=== PATIENT | female | born 1970 | race African-American/Black ===

== ENCOUNTER 2019-01-03 23:03 | Emergency (ER) | payer OTHER ==
[~2019-01-03] VITALS: Ht 167.6 cm; Wt 72.6 kg
[2019-01-03 23:37] LABS: Basophils # (auto) 0.1 uL; Basophils % (auto) 1.2 % (0.0-2.0); Eosinophils # (auto) 0.1 uL; Eosinophils % (auto) 1.8 % (0.0-7.0); Hematocrit 39.3 % (36.0-46.0); Hemoglobin 13.3 g/dL (12.2-16.2); Lymphocytes # (auto) 1.1 uL; Lymphocytes % (auto) 21.3 % (10.0-50.0); Mean Corpuscular Hemoglobin 32.9 pg (28.0-32.0); Mean Corpuscular Hgb Conc. 33.8 g/dL (32.0-36.0); Mean Corpuscular Volume 97.3 fL (80.0-100.0); Monocytes # (auto) 0.6 uL; Monocytes % (auto) 10.5 % (0.0-12.0); Neutrophils # (auto) 3.5 uL; Neutrophils % (auto) 65.2 % (37.0-80.0); Nucleated Red Blood Cells % 0.1 %; Platelet Count (auto) 202 10^3/uL (140-450); Red Blood Cells 4.04 10^6/uL (4.0-5.20); Red Cell Distribution Width 13.4 % (11.8-14.3); White Blood Cell 5.4 10^3/uL (4.4-10.8)
[2019-01-03 23:55] LABS: Alanine Aminotransferase 20 U/L (13-56); Albumin 3.3 g/dL (3.4-5.0); Anion Gap 7 (5-15); Aspartate Aminotransferase 15 U/L (15-37); BUN/Creatinine Ratio 10.8; Blood Urea Nitrogen 11 mg/dL (7-18); Calcium 8.2 mg/dL (8.5-10.1); Carbon Dioxide 25 mmol/L (21-32); Chloride 107 mmol/L (98-107); GFR African American 74 mL/min; GFR Non-African American 61 mL/min; Glucose 108 mg/dL (74-106); Magnesium 2.2 mg/dL (1.6-2.6); Potassium 3.4 mmol/L (3.5-5.1); Sodium 139 mmol/L (136-145)
[2019-01-04] LABS: Alkaline Phosphatase 96 U/L (45-117); Total Protein 7.5 g/dL (6.4-8.2)
[2019-01-04 00:45] LABS: Urine Bacteria FEW /hpf (None Seen); Urine Blood 2+ /uL (Negative); Urine Mucus FEW (None Seen); Urine Specific Gravity 1.022 (1.001-1.035); Urine WBC 1 /hpf (0 - 5)
[2019-01-04 04:13] LABS: CRP High Sensitivity 0.27 mg/dL (< 0.3)
[2019-01-04 05:34] VITALS: BP 124/55
[2019-01-04] MEDS ORDERED: cefTRIAXone SOD 1,000 MG VL IM ONE (05:45)
[2019-01-04] MEDS ORDERED: ASPirin 81 mg TAB PO ONE (05:45)
== END 2019-01-04 05:59 | disposition home or self-care (01) ==
LOC: ER 23:04
DX: J32.9 Chronic sinusitis, unspecified (principal); Z88.6 Allergy status to analgesic agent
CPT/HCPCS: 36415; 70450; 71045; 80053; 81001; 83615; 83735; 84484; 85025; 86141; 93005; 94761; 96372; 99284; J0696

== ENCOUNTER 2019-02-10 21:48 | Emergency (ER) | payer OTHER ==
[~2019-02-10] VITALS: Ht 170.2 cm; Wt 73.9 kg
[2019-02-10 22:42] LABS: Albumin 3.4 g/dL (3.4-5.0); Calcium 8.4 mg/dL (8.5-10.1); Potassium 3.6 mmol/L (3.5-5.1)
[2019-02-10 22:46] LABS: Urine Bacteria FEW /hpf (None Seen); Urine Blood 2+ /uL (Negative); Urine Specific Gravity 1.008 (1.001-1.035); Urine WBC 368 /hpf (0 - 5); Urine WBC Clumps PRESENT /hpf (None Seen)
[2019-02-10 22:46] LABS: BUN/Creatinine Ratio 11.8; Basophils # (auto) 0 uL; Basophils % (auto) 0.5 % (0.0-2.0); Bilirubin, Total 3.4 mg/dL (0.2-1.0); Eosinophils # (auto) 0 uL; Eosinophils % (auto) 0.1 % (0.0-7.0); Hematocrit 37.8 % (36.0-46.0); Lymphocytes # (auto) 0.3 uL; Lymphocytes % (auto) 4.2 % (10.0-50.0); Mean Corpuscular Hemoglobin 33.7 pg (28.0-32.0); Mean Corpuscular Hgb Conc. 34.4 g/dL (32.0-36.0); Mean Corpuscular Volume 97.9 fL (80.0-100.0); Monocytes # (auto) 0.4 uL; Monocytes % (auto) 4.8 % (0.0-12.0); Neutrophils # (auto) 7.5 uL; Neutrophils % (auto) 90.4 % (37.0-80.0); Platelet Count (auto) 140 10^3/uL (140-450); Red Blood Cells 3.86 10^6/uL (4.0-5.20); Red Cell Distribution Width 13.8 % (11.8-14.3); Total Protein 7.1 g/dL (6.4-8.2); White Blood Cell 8.3 10^3/uL (4.4-10.8)
[2019-02-11 04:05] VITALS: BP 115/57
[2019-02-11] MEDS ORDERED: cefTRIAXone 1GM/50ML D5W 50 ML IV ONE (04:30)
[2019-02-11] MEDS ORDERED: SODIUM CHLORIDE 0.9% 1,000 ML IV ONE (04:30)
== END 2019-02-11 05:39 | disposition home or self-care (01) ==
LOC: ER 21:49
DX: N39.0 Urinary tract infection, site not specified (principal); E86.0 Dehydration; I95.9 Hypotension, unspecified; Z88.6 Allergy status to analgesic agent
CPT/HCPCS: 36415; 80053; 81001; 85025; 96365; 99283; J0696